=== PATIENT | male | born 1975 | race African-American/Black ===

== ENCOUNTER 2023-02-04 00:37 | Inpatient (IN) | payer MEDICAID, OTHER ==
[~2023-02-04] VITALS: Ht 188 cm; Wt 97.5 kg
[2023-02-04] MEDS ORDERED: IPRATROPIUM NEB FS 0.5 MG/2.5 ML AMPUL.NEB NEB ONE (01:00)
[2023-02-04] MEDS ORDERED: ALBUTEROL FS 2.5 MG/3 ML VIAL.NEB NEB ONE (01:00)
[2023-02-04 01:32] LABS: BASOPHILS # (AUTO) 0.1 K/uL (0.0-0.2); BASOPHILS % (AUTO) 0.6 % (0.0-2.0); EOSINOPHILS # (AUTO) 0.3 K/uL (0.0-0.7); EOSINOPHILS % (AUTO) 2.4 % (0.0-6.0); HEMATOCRIT 41 % (39-51); HEMOGLOBIN 13.7 g/dL (13.5-17.5); LYMPHOCYTES # (AUTO) 2.1 K/uL (0.8-4.8); LYMPHOCYTES % (AUTO) 19.1 % (20.0-44.0); MEAN CORPUSCULAR HEMOGLOBIN 31 PG (26.0-33.0); MEAN CORPUSCULAR HGB CONC 33 g/dl (31.0-36.0); MEAN CORPUSCULAR VOLUME 93 fL (80-96); MONOCYTES # (AUTO) 0.8 K/uL (0.1-1.30); MONOCYTES % (AUTO) 6.9 % (2.0-12.0); NEUTROPHILS # (AUTO) 7.9 K/uL (1.8-8.9); PLATELET COUNT (AUTO) 197 K/uL (150-450); RED BLOOD CELL COUNT(AUTO) 4.44 MIL/uL (4.5-6.0); RED CELL DISTRIBUTION WIDTH 13.4 % (11.5-15.0); WHITE BLOOD COUNT (AUTO) 11.1 K/uL (4.3-11.0)
[2023-02-04 01:37] LABS: CALCIUM, SERUM 8.6 mg/dL (8.5-10.1); CARBON DIOXIDE 26 mmol/L (21-32); CHLORIDE 103 mmol/L (98-107); CREATININE 1.4 mg/dL (0.6-1.3); GLUCOSE 110 mg/dL (74-106); SODIUM SERUM 137 mmol/L (136-145); UREA NITROGEN, BLOOD 15 mg/dL (7-18)
[2023-02-04] MEDS ORDERED: IPRATROPIUM NEB FS 0.5 MG/2.5 ML AMPUL.NEB ONE (01:40)
[2023-02-04] MEDS ORDERED: ALBUTEROL FS 2.5 MG/3 ML VIAL.NEB ONE (01:40)
[2023-02-04 01:43] LABS: ALANINE AMINOTRANSFERASE 119 U/L (12-78); ALBUMIN 3.5 g/dL (3.4-5.0); ALKALINE PHOSPHATASE 112 U/L (46-116); ASPARTATE AMINOTRANSFERASE 133 U/L (15-37); BILIRUBIN,DIRECT 0.2 mg/dL (0.0-0.2); BILIRUBIN,TOTAL 0.8 mg/dL (0.2-1.0); TOTAL PROTEIN, SERUM 6.8 g/dL (6.4-8.2)
[2023-02-04 01:46] VITALS: O2SAT 96
[2023-02-04 01:56] VITALS: O2SAT 97
[2023-02-04 02:07] VITALS: O2SAT 99
[2023-02-04] MEDS ORDERED: IOHEXOL-350 100 ML VIAL IV ONE (02:23)
[2023-02-04] MEDS ORDERED: FUROSEMIDE 20 MG/2 ML VIAL IV ONE (05:30)
[2023-02-04] MEDS ORDERED: MORPHINE SULFATE INJ 2 MG/ML DISP.SYRIN IV PRN (06:00)
[2023-02-04] MEDS ORDERED: Z GUARD REMEDY 4 OZ OINT TP PRN (06:00)
[2023-02-04] MEDS ORDERED: MAG HYDROX/AL HYDROX/SIMETH 30 ML UDC PO PRN (06:00)
[2023-02-04] MEDS ORDERED: TEMAZEPAM 15 MG CAPSULE PO PRN (06:00)
[2023-02-04] MEDS ORDERED: ACETAMINOPHEN 325 MG TABLET PO PRN (06:00)
[2023-02-04] MEDS ORDERED: ONDANSETRON HCL/PF 4 MG/2 ML VIAL IVP PRN (06:00)
[2023-02-04] MEDS ORDERED: MAGNESIUM HYDROXIDE 30 ML UDC PO PRN (06:00)
[2023-02-04] MEDS ORDERED: CHOL100043 PO (07:56)
[2023-02-04] MEDS ORDERED: IBUP-1957 PO (07:56)
[2023-02-04] MEDS ORDERED: CARV25TA PO (07:56)
[2023-02-04] MEDS ORDERED: ASCO100058 PO (07:56)
[2023-02-04] MEDS ORDERED: ASPI-1169 PO (07:56)
[2023-02-04] MEDS ORDERED: MULT-1201 PO (07:56)
[2023-02-04] MEDS ORDERED: PROM118S5 PO (07:56)
[2023-02-04] MEDS ORDERED: SACU1TAB4 PO (07:56)
[2023-02-04] MEDS ORDERED: FUROSEMIDE 40 MG/4 ML VIAL ONE (08:21)
[2023-02-04] MEDS ORDERED: PANTOPRAZOLE 40 MG TABLET.DR PO ONE (08:21)
[2023-02-04] MEDS: PANTOPRAZOLE 40 MG TABLET.DR PO SCH (08:27)
[2023-02-04] MEDS ORDERED: FUROSEMIDE 40 MG/4 ML VIAL IV SCH (09:00)
[2023-02-04] MEDS ORDERED: ALBUTEROL HALF STRENGTH 1.25 MG/3 ML VIAL.NEB NEB PRN (13:00)
[2023-02-04] MEDS ORDERED: MORPHINE SULFATE INJ 4 MG/ML DISP.SYRIN IV PRN (13:30)
[2023-02-04 15:00] VITALS: BP 149/89; TEMP 97.9; O2SAT 98
[2023-02-04] MEDS ORDERED: CARVEDILOL 12.5 MG TABLET PO SCH (22:30)
[2023-02-04 23:31] VITALS: O2SAT 95
[2023-02-04] MEDS: ALBUTEROL HALF STRENGTH 1.25 MG/3 ML VIAL.NEB NEB PRN (23:31)
[2023-02-04] MEDS: IPRATROPIUM NEB FS 0.5 MG/2.5 ML AMPUL.NEB NEB PRN (23:31)
[2023-02-04 23:46] VITALS: O2SAT 98
[2023-02-05] MEDS ORDERED: IBUPROFEN 800 MG TABLET PO PRN (00:30)
[2023-02-05 06:25] LABS: BASOPHILS # (AUTO) 0.1 K/uL (0.0-0.2); BASOPHILS % (AUTO) 0.8 % (0.0-2.0); EOSINOPHILS # (AUTO) 0.3 K/uL (0.0-0.7); EOSINOPHILS % (AUTO) 5.1 % (0.0-6.0); HEMATOCRIT 40 % (39-51); HEMOGLOBIN 13.5 g/dL (13.5-17.5); LYMPHOCYTES # (AUTO) 1.7 K/uL (0.8-4.8); LYMPHOCYTES % (AUTO) 27.3 % (20.0-44.0); MEAN CORPUSCULAR HEMOGLOBIN 32 PG (26.0-33.0); MEAN CORPUSCULAR HGB CONC 34 g/dl (31.0-36.0); MEAN CORPUSCULAR VOLUME 93 fL (80-96); MONOCYTES # (AUTO) 0.5 K/uL (0.1-1.30); MONOCYTES % (AUTO) 8.6 % (2.0-12.0); NEUTROPHILS # (AUTO) 3.6 K/uL (1.8-8.9); NEUTROPHILS % (AUTO) 58.2 % (43.0-81.0); PLATELET COUNT (AUTO) 179 K/uL (150-450); RED BLOOD CELL COUNT(AUTO) 4.27 MIL/uL (4.5-6.0); RED CELL DISTRIBUTION WIDTH 13.5 % (11.5-15.0); WHITE BLOOD COUNT (AUTO) 6.2 K/uL (4.3-11.0)
[2023-02-05] MEDS: HYDROCODONE/APAP 5/325MG TABLET PO PRN (06:29)
[2023-02-05 06:55] LABS: CALCIUM, SERUM 8.4 mg/dL (8.5-10.1); CREATININE 1.4 mg/dL (0.6-1.3); MAGNESIUM 2.1 mg/dL (1.8-2.4); PHOSPHORUS 4.1 mg/dL (2.5-4.9); POTASSIUM 3.6 mmol/L (3.5-5.1)
[2023-02-05] MEDS ORDERED: IBUPROFEN 400 MG TABLET PO PRN (07:00)
[2023-02-05 07:02] LABS: THYROID STIMULATING HORMONE 1.647 uIU/mL (0.358-3.74)
[2023-02-05] MEDS: PANTOPRAZOLE 40 MG TABLET.DR PO SCH (08:10)
[2023-02-05] MEDS: POTASSIUM CHLORIDE 20 MEQ TAB.PRT.SR PO SCH ×3 (08:10→11:11)
[2023-02-05] MEDS: IPRATROPIUM NEB FS 0.5 MG/2.5 ML AMPUL.NEB NEB PRN (08:11)
[2023-02-05] MEDS: ASPIRIN 81 MG TAB.CHEW PO SCH (08:11)
[2023-02-05] MEDS: MULTIPLE VIT (LYCOPENE/FA/MV,CA,IRON,MIN/LUT)1 TAB PO SCH (08:11)
[2023-02-05] MEDS: ASCORBIC ACID 500 MG TABLET PO SCH (08:11)
[2023-02-05] MEDS: CHOLECALCIFEROL 1,000 UNIT TABLET (VIT D3) PO SCH (08:11)
[2023-02-05 08:12] VITALS: O2SAT 96
[2023-02-05] MEDS: ALBUTEROL HALF STRENGTH 1.25 MG/3 ML VIAL.NEB NEB PRN (08:12)
[2023-02-05] MEDS: FUROSEMIDE 40 MG/4 ML VIAL IV SCH ×3 (08:15→15:06)
[2023-02-05] MEDS: CARVEDILOL 12.5 MG TABLET PO SCH ×2 (08:15→20:47)
[2023-02-05] MEDS: ENTRESTO PO SCH ×2 (08:17→16:09)
[2023-02-05 08:27] VITALS: O2SAT 98
[2023-02-05] MEDS: GUAIFENESIN/CODEINE 10 ML UDC PO PRN (11:38)
[2023-02-05 16:06] LABS: APPEARANCE,URINE CLEAR (CLEAR); BILIRUBIN,URINE NEGATIVE (NEGATIVE); BLOOD, URINE TRACE-INTA Ery/uL (NEGATIVE); COLOR,URINE YELLOW (YELLOW); KETONES,URINE NEGATIVE (NEGATIVE); LEUKOCYTE ESTERASE ,URINE NEGATIVE (NEGATIVE); NITRITE, URINE NEGATIVE (NEGATIVE); PH,URINE 5.5 (5.0-8.0); PROTEIN,URINE NEGATIVE (NEGATIVE); UGLUCOSE NEGATIVE (NEGATIVE); UROBILINOGEN,URINE 0.2 EU/dL (0.2)
[2023-02-05 17:10] LABS: CREATININE, URINE 51.3 MG/DL (30.0-125.0); URINE TOTAL PROTEIN 6.4 mg/dL (0-11.9)
[2023-02-05 17:22] LABS: ADD URINE CULTURE NO; BACTERIA,URINE None seen /HPF (None Seen); SQUAMOUS EPITHELIAL CELL,UR None Seen /HPF (None Seen); WBC,URINE NONE SEEN /HPF (0-3)
[2023-02-05 17:48] LABS: EOSINOPHIL,URINE None Seen
[2023-02-05 20:00] VITALS: BP 124/90; TEMP 98.2; O2SAT 95
[2023-02-06] VITALS: BP 136/92; TEMP 98.4; O2SAT 95
[2023-02-06 04:00] VITALS: BP 133/92; TEMP 98.4; O2SAT 93
[2023-02-06] MEDS: HYDROCODONE/APAP 5/325MG TABLET PO PRN (06:34)
[2023-02-06 07:00] LABS: BASOPHILS # (AUTO) 0.1 K/uL (0.0-0.2); BASOPHILS % (AUTO) 0.5 % (0.0-2.0); EOSINOPHILS # (AUTO) 0.4 K/uL (0.0-0.7); EOSINOPHILS % (AUTO) 2.7 % (0.0-6.0); HEMATOCRIT 42 % (39-51); LYMPHOCYTES # (AUTO) 1.4 K/uL (0.8-4.8); LYMPHOCYTES % (AUTO) 10.1 % (20.0-44.0); MEAN CORPUSCULAR HEMOGLOBIN 31 PG (26.0-33.0); MEAN CORPUSCULAR HGB CONC 33 g/dl (31.0-36.0); MEAN CORPUSCULAR VOLUME 93 fL (80-96); MONOCYTES # (AUTO) 0.9 K/uL (0.1-1.30); MONOCYTES % (AUTO) 6.5 % (2.0-12.0); NEUTROPHILS # (AUTO) 10.9 K/uL (1.8-8.9); NEUTROPHILS % (AUTO) 80.2 % (43.0-81.0); PLATELET COUNT (AUTO) 191 K/uL (150-450); RED BLOOD CELL COUNT(AUTO) 4.52 MIL/uL (4.5-6.0); RED CELL DISTRIBUTION WIDTH 13.2 % (11.5-15.0); WHITE BLOOD COUNT (AUTO) 13.6 K/uL (4.3-11.0)
[2023-02-06 07:41] LABS: ALBUMIN 3.1 g/dL (3.4-5.0); BILIRUBIN,TOTAL 0.9 mg/dL (0.2-1.0); CALCIUM, SERUM 8.7 mg/dL (8.5-10.1); CREATININE 1.4 mg/dL (0.6-1.3); PHOSPHORUS 4.3 mg/dL (2.5-4.9); POTASSIUM 3.4 mmol/L (3.5-5.1); TOTAL PROTEIN, SERUM 6.6 g/dL (6.4-8.2)
[2023-02-06] MEDS: PANTOPRAZOLE 40 MG TABLET.DR PO SCH (07:57)
[2023-02-06 08:00] VITALS: BP 169/131; TEMP 98.2; O2SAT 93
[2023-02-06] MEDS ORDERED: AZITHROMYCIN 250 MG TABLET PO SCH (08:00)
[2023-02-06] MEDS ORDERED: AZITHROMYCIN 250 MG TABLET PO ONE (08:00)
[2023-02-06] MEDS: CHOLECALCIFEROL 1,000 UNIT TABLET (VIT D3) PO SCH (08:19)
[2023-02-06] MEDS: ASPIRIN 81 MG TAB.CHEW PO SCH (08:19)
[2023-02-06] MEDS: MULTIPLE VIT (LYCOPENE/FA/MV,CA,IRON,MIN/LUT)1 TAB PO SCH (08:19)
[2023-02-06] MEDS: ASCORBIC ACID 500 MG TABLET PO SCH (08:19)
[2023-02-06] MEDS: SPIRONOLACTONE 25 MG TABLET PO SCH (08:22)
[2023-02-06] MEDS: ENTRESTO PO SCH ×2 (08:22→16:33)
[2023-02-06] MEDS: CARVEDILOL 12.5 MG TABLET PO SCH ×2 (08:24→21:47)
[2023-02-06] MEDS ORDERED: POTASSIUM CHLORIDE 20 MEQ TAB.PRT.SR PO ONE (11:00)
[2023-02-06 12:00] VITALS: BP 156/101; TEMP 97.9; O2SAT 93
[2023-02-06 16:00] VITALS: BP 146/103; TEMP 98.8; O2SAT 93
[2023-02-06 20:00] VITALS: BP 159/109; TEMP 99; O2SAT 98
[2023-02-06] MEDS: GUAIFENESIN/CODEINE 10 ML UDC PO PRN (21:48)
[2023-02-06] MEDS ORDERED: ALPRAZOLAM 0.5 MG TABLET PO PRN (22:30)
[2023-02-07] VITALS (7 sets, daily range): BP systolic 115–180; BP diastolic 75–118; TEMP 97.5–98; O2SAT 98–100
[2023-02-07 06:22] LABS: BASOPHILS % (AUTO) 0.5 % (0.0-2.0); EOSINOPHILS # (AUTO) 0.3 K/uL (0.0-0.7); EOSINOPHILS % (AUTO) 4.6 % (0.0-6.0); HEMATOCRIT 39 % (39-51); HEMOGLOBIN 13.2 g/dL (13.5-17.5); LYMPHOCYTES # (AUTO) 1.2 K/uL (0.8-4.8); LYMPHOCYTES % (AUTO) 16.7 % (20.0-44.0); MEAN CORPUSCULAR HEMOGLOBIN 32 PG (26.0-33.0); MEAN CORPUSCULAR HGB CONC 34 g/dl (31.0-36.0); MEAN CORPUSCULAR VOLUME 93 fL (80-96); MONOCYTES # (AUTO) 0.7 K/uL (0.1-1.30); MONOCYTES % (AUTO) 9.2 % (2.0-12.0); PLATELET COUNT (AUTO) 187 K/uL (150-450); RED BLOOD CELL COUNT(AUTO) 4.17 MIL/uL (4.5-6.0); RED CELL DISTRIBUTION WIDTH 13.4 % (11.5-15.0); WHITE BLOOD COUNT (AUTO) 7.2 K/uL (4.3-11.0)
[2023-02-07] MEDS: PANTOPRAZOLE 40 MG TABLET.DR PO SCH (08:17)
[2023-02-07 08:27] LABS: CALCIUM, SERUM 8.6 mg/dL (8.5-10.1); CREATININE 1.5 mg/dL (0.6-1.3); MAGNESIUM 2.3 mg/dL (1.8-2.4); PHOSPHORUS 3.7 mg/dL (2.5-4.9); POTASSIUM 3.5 mmol/L (3.5-5.1)
[2023-02-07] MEDS: ASCORBIC ACID 500 MG TABLET PO SCH (09:32)
[2023-02-07] MEDS: CHOLECALCIFEROL 1,000 UNIT TABLET (VIT D3) PO SCH (09:32)
[2023-02-07] MEDS: AZITHROMYCIN 250 MG TABLET PO SCH (09:32)
[2023-02-07] MEDS: MULTIPLE VIT (LYCOPENE/FA/MV,CA,IRON,MIN/LUT)1 TAB PO SCH (09:32)
[2023-02-07] MEDS: ASPIRIN 81 MG TAB.CHEW PO SCH (09:33)
[2023-02-07] MEDS: CARVEDILOL 12.5 MG TABLET PO SCH ×2 (09:33→21:08)
[2023-02-07] MEDS: SPIRONOLACTONE 25 MG TABLET PO SCH (09:33)
[2023-02-07] MEDS: ENTRESTO PO SCH ×2 (09:34→17:06)
[2023-02-07] MEDS: POTASSIUM CHLORIDE 20 MEQ TAB.PRT.SR PO SCH ×2 (10:49→11:00)
[2023-02-07] MEDS ORDERED: POTASSIUM CHLORIDE 20 MEQ TAB.PRT.SR PO SCH (13:00)
[2023-02-08] MEDS: GUAIFENESIN/CODEINE 10 ML UDC PO PRN (02:03)
[2023-02-08 05:05] VITALS: BP 134/110; TEMP 97.7; O2SAT 98
[2023-02-08 06:19] LABS: INR 1.04 (0.91-1.10)
[2023-02-08] MEDS ORDERED: ACETAMINOPHEN ES 500 MG TABLET PO ONE (07:30)
[2023-02-08] MEDS: PANTOPRAZOLE 40 MG TABLET.DR PO SCH (07:30)
[2023-02-08] MEDS ORDERED: GABAPENTIN 300 MG CAPSULE PO ONE (07:30)
[2023-02-08 08:00] VITALS: BP 142/102; TEMP 99.1; O2SAT 99
[2023-02-08] MEDS ORDERED: LIDOCAINE HCL/MPF 1% 30 ML VIAL IJ ONE (08:04)
[2023-02-08] MEDS ORDERED: IOHEXOL 0 ML IV ONE (08:04)
[2023-02-08] MEDS ORDERED: ANESTHESIA TRAY IN PYXIS 1 EA TRAY MC ONE (08:13)
[2023-02-08] MEDS ORDERED: MIDAZOLAM HCL 2 MG/2ML VIAL ONE ×2 (08:33→08:45)
[2023-02-08] MEDS ORDERED: FENTANYL PF 100MCG/2ML AMPUL ONE (08:33)
[2023-02-08] MEDS ORDERED: BUPIVACAINE 0.5 % PF 150 MG/30 ML VIAL ONE (08:49)
[2023-02-08] MEDS: AZITHROMYCIN 250 MG TABLET PO SCH (09:00)
[2023-02-08] MEDS: ASCORBIC ACID 500 MG TABLET PO SCH (09:00)
[2023-02-08] MEDS: CHOLECALCIFEROL 1,000 UNIT TABLET (VIT D3) PO SCH (09:00)
[2023-02-08] MEDS: SACUBITRIL/VALSARTAN 1 EACH TABLET PO SCH ×2 (09:00→17:26)
[2023-02-08] MEDS: SPIRONOLACTONE 25 MG TABLET PO SCH (09:00)
[2023-02-08] MEDS: MULTIPLE VIT (LYCOPENE/FA/MV,CA,IRON,MIN/LUT)1 TAB PO SCH (09:00)
[2023-02-08] MEDS: CARVEDILOL 12.5 MG TABLET PO SCH ×2 (09:00→20:31)
[2023-02-08] MEDS: ASPIRIN 81 MG TAB.CHEW PO SCH (09:00)
[2023-02-08] MEDS ORDERED: METOPROLOL TARTRATE INJ 5 MG/5 ML AMPUL ONE (09:03)
[2023-02-08] MEDS ORDERED: CELLULOSE,OXIDIZED 1 EA PACK MC ONE (09:19)
[2023-02-08] MEDS ORDERED: hydrALAZINE HCL IV 20 MG VIAL ONE (09:23)
[2023-02-08] MEDS ORDERED: ALBUTEROL HALF STRENGTH 1.25 MG/3 ML VIAL.NEB ONE (09:40)
[2023-02-08] MEDS: HYDROCODONE/APAP 5/325MG TABLET PO PRN (10:46)
[2023-02-08 12:00] VITALS: BP 134/84; TEMP 97.5; O2SAT 99
[2023-02-08] MEDS: HYDROCODONE/APAP 10/325MG TABLET PO PRN ×2 (13:25→22:41)
[2023-02-08 16:00] VITALS: BP 164/116; TEMP 98.4; O2SAT 100
[2023-02-08 20:00] VITALS: BP 157/119; TEMP 98.6; O2SAT 100
[2023-02-09] VITALS: BP 154/108; TEMP 98.6; O2SAT 100
[2023-02-09 04:00] VITALS: BP 148/99; TEMP 97.9; O2SAT 97
[2023-02-09 07:52] LABS: BASOPHILS # (AUTO) 0.1 K/uL (0.0-0.2); BASOPHILS % (AUTO) 0.7 % (0.0-2.0); EOSINOPHILS # (AUTO) 0.3 K/uL (0.0-0.7); EOSINOPHILS % (AUTO) 3.7 % (0.0-6.0); HEMATOCRIT 39 % (39-51); HEMOGLOBIN 13.2 g/dL (13.5-17.5); LYMPHOCYTES # (AUTO) 1.8 K/uL (0.8-4.8); LYMPHOCYTES % (AUTO) 21.1 % (20.0-44.0); MEAN CORPUSCULAR HEMOGLOBIN 32 PG (26.0-33.0); MEAN CORPUSCULAR HGB CONC 34 g/dl (31.0-36.0); MEAN CORPUSCULAR VOLUME 94 fL (80-96); MONOCYTES # (AUTO) 0.9 K/uL (0.1-1.30); MONOCYTES % (AUTO) 11.1 % (2.0-12.0); NEUTROPHILS # (AUTO) 5.3 K/uL (1.8-8.9); NEUTROPHILS % (AUTO) 63.4 % (43.0-81.0); PLATELET COUNT (AUTO) 169 K/uL (150-450); RED BLOOD CELL COUNT(AUTO) 4.18 MIL/uL (4.5-6.0); RED CELL DISTRIBUTION WIDTH 13.2 % (11.5-15.0); WHITE BLOOD COUNT (AUTO) 8.4 K/uL (4.3-11.0)
[2023-02-09 08:09] LABS: ALBUMIN 2.9 g/dL (3.4-5.0); BILIRUBIN,TOTAL 0.5 mg/dL (0.2-1.0); CALCIUM, SERUM 8.4 mg/dL (8.5-10.1); CREATININE 1.1 mg/dL (0.6-1.3); MAGNESIUM 2.4 mg/dL (1.8-2.4); POTASSIUM 3.9 mmol/L (3.5-5.1); TOTAL PROTEIN, SERUM 6.4 g/dL (6.4-8.2)
[2023-02-09] MEDS: SPIRONOLACTONE 25 MG TABLET PO SCH (08:15)
[2023-02-09] MEDS: ASCORBIC ACID 500 MG TABLET PO SCH (08:16)
[2023-02-09] MEDS: ASPIRIN 81 MG TAB.CHEW PO SCH (08:17)
[2023-02-09] MEDS: PANTOPRAZOLE 40 MG TABLET.DR PO SCH (08:17)
[2023-02-09] MEDS: MULTIPLE VIT (LYCOPENE/FA/MV,CA,IRON,MIN/LUT)1 TAB PO SCH (08:17)
[2023-02-09] MEDS: AZITHROMYCIN 250 MG TABLET PO SCH (08:18)
[2023-02-09 08:22] VITALS: BP 169/130
[2023-02-09] MEDS: CARVEDILOL 12.5 MG TABLET PO SCH (08:22)
[2023-02-09] MEDS: SACUBITRIL/VALSARTAN 1 EACH TABLET PO SCH (08:23)
[2023-02-09] MEDS: CHOLECALCIFEROL 1,000 UNIT TABLET (VIT D3) PO SCH (08:24)
[2023-02-09] MEDS ORDERED: SPIR25TA6 PO (10:52)
[2023-02-09] MEDS ORDERED: MULT-1201 PO (10:52)
[2023-02-09] MEDS ORDERED: IBUP-1957 PO (10:52)
[2023-02-09] MEDS ORDERED: CEPH500C2 PO (10:52)
[2023-02-09] MEDS ORDERED: HYDR-3976 PO (10:52)
[2023-02-09] MEDS ORDERED: SACU1TAB4 PO (10:52)
[2023-02-09] MEDS ORDERED: CARV25TA PO (10:52)
[2023-02-09] MEDS ORDERED: ASPI-1169 PO (10:52)
[2023-02-09] MEDS: HYDROCODONE/APAP 10/325MG TABLET PO PRN (11:53)
[2023-02-09] MEDS ORDERED: PROM118S5 PO (12:09)
== END 2023-02-09 12:55 | disposition home or self-care (01) | DRG 179 ==
LOC: ER 00:41 → TRANSITION 07:50 → TELE1 13:30
PROVIDERS: ADMIT Nurse Practitioner Acute Care; ATTEND Nurse Practitioner Acute Care
PROC: 0JH608Z Insertion of Defibrillator Generator into Chest Subcutaneous Tissue and Fascia, Open Approach (ICD-10-PCS; principal; 2023-02-08)
PROC: 02HK3KZ Insertion of Defibrillator Lead into Right Ventricle, Percutaneous Approach (ICD-10-PCS; 2023-02-08)
DX: I13.0 Hypertensive heart and chronic kidney disease with heart failure and stage 1 through stage 4 chronic kidney disease, or unspecified chronic kidney disease (principal); N17.0 Acute kidney failure with tubular necrosis; I42.9 Cardiomyopathy, unspecified; I27.20 Pulmonary hypertension, unspecified; N18.4 Chronic kidney disease, stage 4 (severe); K76.1 Chronic passive congestion of liver; I47.20 Ventricular tachycardia, unspecified; J90 Pleural effusion, not elsewhere classified; J45.909 Unspecified asthma, uncomplicated; I50.21 Acute systolic (congestive) heart failure; Z20.822 Contact with and (suspected) exposure to COVID-19; Z85.118 Personal history of other malignant neoplasm of bronchus and lung; Z79.82 Long term (current) use of aspirin; Z79.899 Other long term (current) drug therapy; R74.01 Elevation of levels of liver transaminase levels; R91.1 Solitary pulmonary nodule; M54.30 Sciatica, unspecified side; M89.8X9 Other specified disorders of bone, unspecified site; Z82.49 Family history of ischemic heart disease and other diseases of the circulatory system; Z91.199 Patient's noncompliance with other medical treatment and regimen due to unspecified reason; G89.29 Other chronic pain; F17.200 Nicotine dependence, unspecified, uncomplicated; E66.9 Obesity, unspecified; Z68.27 Body mass index [BMI] 27.0-27.9, adult; F19.10 Other psychoactive substance abuse, uncomplicated
CPT/HCPCS: 36415; 71045-TC; 76770-TC; 80048-TC; 80053-TC; 80061-TC; 80076-TC; 81001; 82570-TC; 83735-TC; 83880; 84100-TC; 84300-TC; 84443-TC; 84484-TC; 85025-TC; 85378-TC; 85610-TC; 93307-TC; A6403; C1722; C9803; G0378; J0360; J1644; J1940; J2250; J2704; J3010; J3490; J7030; Q9967

== ENCOUNTER 2024-05-16 05:06 | Emergency (ER) | payer OTHER ==
[~2024-05-16] VITALS: Ht 185.4 cm; Wt 97.5 kg
[~2024-05-16 05:06] MED LIST: ASCO100058 PO; ASPI-1169 PO; CARV25TA PO; CEPH500C2 PO; CHOL100043 PO; HYDR-3976 PO; IBUP-1957 PO; MULT-1201 PO; PROM118S5 PO; SACU1TAB4 PO; SPIR25TA6 PO
[2024-05-16 05:48] VITALS: BP 155/110; TEMP 97.9
[2024-05-16] MEDS ORDERED: LIDOCAINE 2%-EPI 1:100,000 30 ML VIAL ONE (06:32)
[2024-05-16] MEDS ORDERED: SULF1TAB48 PO (07:06)
[2024-05-16] MEDS ORDERED: CEPH-570 PO (07:06)
[2024-05-16] MEDS ORDERED: IBUP-1955 PO (07:06)
[2024-05-16] MEDS: LIDOCAINE 2%-EPI 1:100,000 30 ML VIAL TP ONE (07:06)
[2024-05-16 07:55] VITALS: O2SAT 98
== END 2024-05-16 07:56 | disposition home or self-care (01) ==
LOC: ER 05:09
DX: L02.412 Cutaneous abscess of left axilla (principal); I11.0 Hypertensive heart disease with heart failure; I50.9 Heart failure, unspecified; Z79.82 Long term (current) use of aspirin; Z79.899 Other long term (current) drug therapy; Z95.810 Presence of automatic (implantable) cardiac defibrillator
CPT/HCPCS: 99284; 10061; A6407; J3490

== ENCOUNTER 2024-05-19 00:19 | Emergency (ER) | payer MEDICAID, OTHER ==
[~2024-05-19] VITALS: Ht 185.4 cm; Wt 97.5 kg
[~2024-05-19 00:19] MED LIST changes: +CEPH-570 PO; +IBUP-1955 PO; +SULF1TAB48 PO
[2024-05-19 00:44] VITALS: BP 159/101; TEMP 98.1; O2SAT 100
== END 2024-05-19 01:00 | disposition home or self-care (01) ==
LOC: ER 00:30
DX: Z48.817 Encounter for surgical aftercare following surgery on the skin and subcutaneous tissue (principal); I10 Essential (primary) hypertension; Z79.82 Long term (current) use of aspirin; Z79.899 Other long term (current) drug therapy

== ENCOUNTER 2024-07-12 04:06 | Emergency (ER) | payer MEDICAID, OTHER ==
[~2024-07-12] VITALS: Ht 188 cm; Wt 95.3 kg
[2024-07-12] MEDS ORDERED: CEFTRIAXONE 1 G VIAL ONE (06:23)
[2024-07-12] MEDS ORDERED: DOXYCYCLINE HYCLATE (100 MG) 100 MG TABLET ONE (06:24)
[2024-07-12] MEDS ORDERED: LIDOCAINE 1% INJ 50 ML MDV IJ ONE (06:25)
[2024-07-12] MEDS: CEFTRIAXONE 1 G VIAL IM ONE (06:48)
[2024-07-12] MEDS: DOXYCYCLINE HYCLATE (100 MG) 100 MG TABLET PO ONE (06:49)
[2024-07-12 07:06] LABS: APPEARANCE,URINE SLIGHTLY CLOUDY (CLEAR); COLOR,URINE YELLOW (YELLOW); PROTEIN,URINE NEGATIVE (NEGATIVE); UGLUCOSE NEGATIVE (NEGATIVE)
[2024-07-12 07:07] LABS: ADD URINE CULTURE NO; BACTERIA,URINE Rare /HPF (None Seen); BILIRUBIN,URINE NEGATIVE (NEGATIVE); BLOOD, URINE TRACE Ery/uL (NEGATIVE); KETONES,URINE NEGATIVE (NEGATIVE); LEUKOCYTE ESTERASE ,URINE NEGATIVE (NEGATIVE); NITRITE, URINE NEGATIVE (NEGATIVE); SQUAMOUS EPITHELIAL CELL,UR Moderate /HPF (None Seen); WBC,URINE 0-2 /HPF (0-3)
[2024-07-12 07:25] LABS: POTASSIUM 3.9 mmol/L (3.5-5.1)
[2024-07-12 07:26] LABS: CALCIUM, SERUM 9.4 mg/dL (8.5-10.1); CREATININE 1.2 mg/dL (0.6-1.3); HEMATOCRIT 43 % (39-51); HEMOGLOBIN 14.7 g/dL (13.5-17.5); MEAN CORPUSCULAR HEMOGLOBIN 32 PG (26.0-33.0); MEAN CORPUSCULAR VOLUME 94 fL (80-96); RED BLOOD CELL COUNT(AUTO) 4.57 MIL/uL (4.5-6.0); WHITE BLOOD COUNT (AUTO) 7.2 K/uL (4.3-11.0)
[2024-07-12 07:27] LABS: BASOPHILS % (AUTO) 0.9 % (0.0-2.0); EOSINOPHILS % (AUTO) 6.9 % (0.0-6.0); LYMPHOCYTES % (AUTO) 21.9 % (20.0-44.0); MEAN CORPUSCULAR HGB CONC 34 g/dl (31.0-36.0); MONOCYTES % (AUTO) 10.5 % (2.0-12.0); NEUTROPHILS % (AUTO) 59.8 % (43.0-81.0); PLATELET COUNT (AUTO) 196 K/uL (150-450); RED CELL DISTRIBUTION WIDTH 12.7 % (11.5-15.0)
[2024-07-12 07:50] VITALS: BP 158/101; TEMP 97.7; O2SAT 99
[2024-07-12 17:01] LABS: HIV-1 p24 ANTIGEN NON REACTIVE (NONREACTIVE); HIV-1/2 ANTIBODY NON REACTIVE (NONREACTIVE)
[2024-07-13 04:06] LABS: RAPID PLASMA REAGIN QUAL. Non Reactive (Non Reactive)
[2024-07-13 13:12] LABS: CHLAMYDIA TRACHOMATIS NAA Negative (Negative); NEISSERIA GONORRHOEAE NAA Negative (Negative)
[2024-07-14 17:11] LABS: *HSV 1 DNA PCR Negative (Negative); *HSV 2 DNA PCR Negative (Negative)
== END 2024-07-12 07:51 | disposition left against medical advice (07) ==
LOC: ER 04:06
DX: N50.812 Left testicular pain (principal); I10 Essential (primary) hypertension; Z79.82 Long term (current) use of aspirin; Z79.899 Other long term (current) drug therapy; Z53.29 Procedure and treatment not carried out because of patient's decision for other reasons
CPT/HCPCS: 99283; 86593; 86592; 96372; 85025; 80048; 81001; 36415; 87529; 87806; 87491; 87591; J3490; J0696